=== PATIENT | male | born 1990 | race Caucasian/White ===

== ENCOUNTER 2018-12-01 13:53 | Inpatient (IN) | payer OTHER ==
[~2018-12-01 13:53] MED LIST: CEFAZOLIN 1 GM/50 ML (PMX) 50 ML IVPB; SEVOFLURANE 15 MIN
[2018-12-01] MEDS: LACTATED RINGER'S 1,000 ML IV ×2 (15:00→22:17)
[2018-12-01] MEDS ORDERED: ROPIVACAINE 0.2% 20 ML VIAL (15:49)
[2018-12-01] MEDS ORDERED: PROPOFOL 20 ML (15:49)
[2018-12-01] MEDS ORDERED: FENTAnyl 50 MCG/ML VIAL ×2 (15:49→19:43)
[2018-12-01] MEDS ORDERED: MIDAZOLAM 1 MG/ML 2 ML INJ (15:49)
[2018-12-01] MEDS ORDERED: ROCURONIUM 50 MG INJ ×4 (15:49→18:31)
[2018-12-01] MEDS ORDERED: ROPIVACAINE 0.5 % 30 ML VIAL (15:49)
[2018-12-01] MEDS ORDERED: ONDANSETRON 4 MG INJ (16:44)
[2018-12-01] MEDS ORDERED: CEFAZOLIN 1 GM INJ (16:44)
[2018-12-01] MEDS ORDERED: METOCLOPRAMIDE 10 MG INJ (16:44)
[2018-12-01] MEDS ORDERED: DEXAMETHASONE 4 MG/ML 5 ML INJ (16:44)
[2018-12-01] MEDS ORDERED: KETOROLAC 30 MG INJ (16:44)
[2018-12-01] MEDS ORDERED: OXYCODONE/ACETAMINOPHEN (5/325) TAB PO (18:00)
[2018-12-01] MEDS ORDERED: MEPERIDINE 25 MG INJ IV (18:00)
[2018-12-01] MEDS ORDERED: DIPHENHYDRAMINE 50 MG INJ IV (18:00)
[2018-12-01] MEDS ORDERED: METOCLOPRAMIDE 10 MG INJ IV (18:00)
[2018-12-01] MEDS ORDERED: FENTAnyl 50 MCG/ML VIAL IV ×2 (18:00)
[2018-12-01] MEDS ORDERED: HYDROmorphONE 1 MG/5 ML IV SYRINGE IV ×3 (18:00)
[2018-12-01] MEDS ORDERED: SUGAMMADEX SODIUM 200 MG/2 ML VIAL IV (19:44)
[2018-12-01] MEDS ORDERED: ZOLPIDEM 5 MG TAB PO (20:30)
[2018-12-01] MEDS ORDERED: ONDANSETRON 4 MG TAB PO (20:30)
[2018-12-01] MEDS: FENTAnyl 50 MCG/ML VIAL IV ×2 (21:00→22:17)
[2018-12-01] MEDS: ONDANSETRON 4 MG INJ IV (21:21)
[2018-12-01] MEDS: morphine 2 MG INJ IV (22:07)
[2018-12-01] MEDS: CYCLOBENZAPRINE 10 MG TAB PO (22:16)
[2018-12-01] MEDS: ASCORBIC ACID 500 MG TAB PO (22:16)
[2018-12-01] MEDS: CEFAZOLIN 1 GM/50 ML (PMX) 50 ML IVPB (22:17)
[2018-12-02] MEDS: HYDROCODONE/APAP (5/325) TAB PO ×2 (01:18→20:29)
[2018-12-02] MEDS: morphine 2 MG INJ IV ×10 (02:27→21:46)
[2018-12-02] MEDS: CEFAZOLIN 1 GM/50 ML (PMX) 50 ML IVPB ×3 (05:25→20:26)
[2018-12-02 06:44] LABS: ADD MAN DIFF? NO
[2018-12-02 06:53] LABS: BASOPHILS % 0.1 % (0.0-2.0); HEMATOCRIT 38.7 % (42.0-52.0); HEMOGLOBIN 13.7 g/dl (14.0-18.0); LYMPHOCYTES # 0.7 10^3/ul (0.8-2.9); LYMPHOCYTES % 4.8 % (15.0-51.0); MEAN CORPUSCULAR HGB CONC 35.4 g/dl (32.0-37.0); MEAN CORPUSCULAR VOLUME 93.3 fl (82.0-101.0); MEAN PLATELET VOLUME 12.1 fl (7.4-10.4); MONOCYTE # 0.6 10^3/ul (0.3-0.9); MONOCYTES % 4.4 % (0.0-11.0); NEUTROPHIL # 12.5 10^3/ul (1.6-7.5); NEUTROPHILS % 90.3 % (39.0-77.0); PLATELET COUNT 168 10^3/UL (140-415); RED BLOOD COUNT 4.15 10^6/ul (4.70-6.10)
[2018-12-02 06:53] LABS: WHITE BLOOD COUNT 13.9 10^3/ul (4.8-10.8)
[2018-12-02] MEDS: ASCORBIC ACID 500 MG TAB PO ×2 (09:10→20:26)
[2018-12-02] MEDS: ZINC SULFATE 220 MG CAP PO (09:10)
[2018-12-02 09:25] LABS: ALANINE AMINOTRANSFERASE 22 IU/L (13-69); ALBUMIN 3.9 g/dl (3.3-4.9); ALBUMIN/GLOBULIN RATIO 1.39; ALKALINE PHOSPHATASE 48 IU/L (42-121); ANION GAP 9 (5-13); ASPARTATE AMINO TRANSFERASE 32 IU/L (15-46); BILIRUBIN,INDIRECT 2.1 mg/dl (0-1.1); BILIRUBIN,TOTAL 2.1 mg/dl (0.2-1.3); BLOOD UREA NITROGEN 13 mg/dl (7-20); CALCIUM 9.2 mg/dl (8.4-10.2); CARBON DIOXIDE 26 mmol/L (21-31); CHLORIDE 103 mmol/L (97-110); CREATININE 1.09 mg/dl (0.61-1.24); Estimated GFR > 60 mL/min (>60); GLUCOSE 127 mg/dl (70-220); POTASSIUM 4.3 mmol/L (3.5-5.1); SODIUM 138 mmol/L (135-144); TOTAL PROTEIN 6.7 g/dl (6.1-8.1)
[2018-12-02] MEDS: LACTATED RINGER'S 1,000 ML IV ×3 (10:20→14:45)
[2018-12-03] MEDS: morphine 2 MG INJ IV ×3 (01:00→05:34)
[2018-12-03] MEDS: LACTATED RINGER'S 1,000 ML IV (01:01)
[2018-12-03] MEDS: CEFAZOLIN 1 GM/50 ML (PMX) 50 ML IVPB ×2 (05:34→14:16)
[2018-12-03] MEDS: morphine 4 MG/ML VIAL IV ×5 (07:47→21:38)
[2018-12-03] MEDS: ZINC SULFATE 220 MG CAP PO (09:36)
[2018-12-03] MEDS: ASCORBIC ACID 500 MG TAB PO ×2 (09:36→21:37)
[2018-12-03] MEDS ORDERED: MAGNESIUM HYDROXIDE 30ML CUP PO (21:00)
[2018-12-03] MEDS ORDERED: ACETAMINOPHEN 325 MG TAB PO (21:00)
[2018-12-03] MEDS: SENNA TAB PO (21:00)
[2018-12-03] MEDS ORDERED: SENNA TAB (21:20)
[2018-12-03] MEDS ORDERED: MAGNESIUM HYDROXIDE 30ML CUP (21:20)
[2018-12-04] MEDS: HYDROCODONE/APAP (5/325) TAB PO ×5 (00:23→16:40)
[2018-12-04 07:06] LABS: ADD MAN DIFF? NO
[2018-12-04 07:11] LABS: WHITE BLOOD COUNT 10.4 10^3/ul (4.8-10.8)
[2018-12-04 07:11] LABS: BASOPHILS % 0.4 % (0.0-2.0); EOSINOPHILS # 0.2 10^3/ul (0.0-0.5); EOSINOPHILS % 1.7 % (0.0-7.0); HEMATOCRIT 39.9 % (42.0-52.0); HEMOGLOBIN 14.1 g/dl (14.0-18.0); LYMPHOCYTES % 18.8 % (15.0-51.0); MEAN CORPUSCULAR HEMOGLOBIN 32.9 pg (29.0-33.0); MEAN CORPUSCULAR HGB CONC 35.3 g/dl (32.0-37.0); MEAN CORPUSCULAR VOLUME 93.2 fl (82.0-101.0); MEAN PLATELET VOLUME 11.6 fl (7.4-10.4); MONOCYTES % 9.7 % (0.0-11.0); NEUTROPHIL # 7.1 10^3/ul (1.6-7.5); NEUTROPHILS % 68.9 % (39.0-77.0); PLATELET COUNT 148 10^3/UL (140-415); RED BLOOD COUNT 4.28 10^6/ul (4.70-6.10); RED CELL DISTRIBUTION WIDTH 12.1 % (11.5-14.5)
[2018-12-04 07:38] LABS: ANION GAP 5 (5-13); BLOOD UREA NITROGEN 13 mg/dl (7-20); CALCIUM 9.4 mg/dl (8.4-10.2); CARBON DIOXIDE 35 mmol/L (21-31); CHLORIDE 98 mmol/L (97-110); CREATININE 1.02 mg/dl (0.61-1.24); Estimated GFR > 60 mL/min (>60); GLUCOSE 92 mg/dl (70-220); POTASSIUM 4.4 mmol/L (3.5-5.1); SODIUM 138 mmol/L (135-144)
[2018-12-04] MEDS: ZINC SULFATE 220 MG CAP PO (08:32)
[2018-12-04] MEDS: ASCORBIC ACID 500 MG TAB PO (08:32)
[2018-12-04] MEDS: SENNA TAB PO (08:33)
== END 2018-12-04 17:57 | DRG 494 ==
LOC: REC 13:53 → PP2 21:53
PROC: 0L8P0ZZ Division of Left Lower Leg Tendon, Open Approach (ICD-10-PCS; principal; 2018-12-01 15:30)
PROC: 0SNG0ZZ Release Left Ankle Joint, Open Approach (ICD-10-PCS; 2018-12-01 15:30)
PROC: 0SN Lower Joints, Release (ICD-10-PCS; 2018-12-01 15:30)
DX: Q66.0 Congenital talipes equinovarus (principal); Q68.8 Other specified congenital musculoskeletal deformities
CPT/HCPCS: 73610; 80048; 80053; 85025; 97110; 97116; 97161; 97530

== ENCOUNTER 2018-12-04 18:06 | Inpatient (IN) | payer OTHER ==
[2018-12-04] MEDS ORDERED: ACETAMINOPHEN 325 MG TAB PO (18:30)
[2018-12-04] MEDS ORDERED: PENDING SANTYL ORDER FOR WOUND CARE XX (18:30)
[2018-12-04] MEDS ORDERED: MAGNESIUM HYDROXIDE 30ML CUP PO (18:30)
[2018-12-04] MEDS ORDERED: ZOLPIDEM 5 MG TAB PO (18:30)
[2018-12-04] MEDS ORDERED: BISACODYL 10 MG SUPP PR (18:30)
[2018-12-04] MEDS ORDERED: HYDROCODONE/APAP (5/325) TAB PO (18:30)
[2018-12-04] MEDS: DOCUSATE SODIUM 100 MG CAP PO (20:08)
[2018-12-04] MEDS: ASCORBIC ACID 500 MG TAB PO (20:08)
[2018-12-04] MEDS: HYDROCODONE/APAP (5/325) TAB PO (20:08)
[2018-12-04] MEDS: SENNA TAB PO (20:09)
[2018-12-04] MEDS ORDERED: SENNA TAB PO (21:00)
[2018-12-05] MEDS: HYDROCODONE/APAP (5/325) TAB PO ×2 (00:07→05:08)
[2018-12-05 06:15] LABS: ADD UMIC NO; UR ASCORBIC ACID 40 mg/dL (NEGATIVE); UR BILIRUBIN (Dip) NEGATIVE (NEGATIVE); UR BLOOD (Dip) NEGATIVE (NEGATIVE); UR CLARITY CLEAR (CLEAR); UR COLOR YELLOW (YELLOW); UR GLUCOSE (Dip) NEGATIVE (NEGATIVE); UR KETONES (Dip) NEGATIVE (NEGATIVE); UR LEUKOCYTE ESTERASE (Dip) NEGATIVE Leu/ul (NEGATIVE); UR NITRITE (Dip) NEGATIVE (NEGATIVE); UR SPECIFIC GRAVITY (Dip) 1.014 (1.003-1.030); UR TOTAL PROTEIN (Dip) NEGATIVE (NEGATIVE); UR UROBILINOGEN (Dip) NEGATIVE (NEGATIVE)
[2018-12-05 07:17] LABS: ADD MAN DIFF? NO
[2018-12-05 07:20] LABS: BASOPHILS % 0.3 % (0.0-2.0); EOSINOPHILS # 0.3 10^3/ul (0.0-0.5); EOSINOPHILS % 2.8 % (0.0-7.0); HEMATOCRIT 44.5 % (42.0-52.0); HEMOGLOBIN 15.8 g/dl (14.0-18.0); LYMPHOCYTES # 1.2 10^3/ul (0.8-2.9); LYMPHOCYTES % 13.2 % (15.0-51.0); MEAN CORPUSCULAR HGB CONC 35.5 g/dl (32.0-37.0); MEAN CORPUSCULAR VOLUME 90.1 fl (82.0-101.0); MEAN PLATELET VOLUME 11.6 fl (7.4-10.4); MONOCYTE # 0.7 10^3/ul (0.3-0.9); MONOCYTES % 7.4 % (0.0-11.0); NEUTROPHILS % 75.6 % (39.0-77.0); PLATELET COUNT 177 10^3/UL (140-415); RED BLOOD COUNT 4.94 10^6/ul (4.70-6.10); RED CELL DISTRIBUTION WIDTH 11.9 % (11.5-14.5)
[2018-12-05 07:20] LABS: WHITE BLOOD COUNT 9.2 10^3/ul (4.8-10.8)
[2018-12-05 07:44] LABS: ALANINE AMINOTRANSFERASE 21 IU/L (13-69); ALBUMIN 3.9 g/dl (3.3-4.9); ALBUMIN/GLOBULIN RATIO 1.08; ALKALINE PHOSPHATASE 58 IU/L (42-121); ANION GAP 8 (5-13); ASPARTATE AMINO TRANSFERASE 26 IU/L (15-46); BILIRUBIN,INDIRECT 1.7 mg/dl (0-1.1); BILIRUBIN,TOTAL 1.7 mg/dl (0.2-1.3); BLOOD UREA NITROGEN 20 mg/dl (7-20); CALCIUM 9.5 mg/dl (8.4-10.2); CARBON DIOXIDE 33 mmol/L (21-31); CHLORIDE 98 mmol/L (97-110); CREATININE 1.02 mg/dl (0.61-1.24); Estimated GFR > 60 mL/min (>60); GLUCOSE 101 mg/dl (70-220); POTASSIUM 4.5 mmol/L (3.5-5.1); SODIUM 139 mmol/L (135-144); TOTAL PROTEIN 7.5 g/dl (6.1-8.1)
[2018-12-05] MEDS ORDERED: HYDROCODONE/APAP (10/325) TAB PO (08:30)
[2018-12-05] MEDS: DOCUSATE SODIUM 100 MG CAP PO ×2 (09:37→20:47)
[2018-12-05] MEDS: ZINC SULFATE 220 MG CAP PO (09:37)
[2018-12-05] MEDS: SENNA TAB PO ×2 (09:37→20:47)
[2018-12-05] MEDS: ASCORBIC ACID 500 MG TAB PO ×2 (09:37→20:47)
[2018-12-05] MEDS: HYDROCODONE/APAP (10/325) TAB PO ×3 (09:41→20:47)
[2018-12-05] MEDS: ENOXAPARIN 40 MG/0.4 ML SYG SC (13:57)
[2018-12-06] MEDS: HYDROCODONE/APAP (10/325) TAB PO ×4 (01:23→20:39)
[2018-12-06] MEDS: ASCORBIC ACID 500 MG TAB PO ×2 (08:18→20:39)
[2018-12-06] MEDS: DOCUSATE SODIUM 100 MG CAP PO ×2 (08:18→20:39)
[2018-12-06] MEDS: ZINC SULFATE 220 MG CAP PO (08:18)
[2018-12-06] MEDS: ENOXAPARIN 40 MG/0.4 ML SYG SC (08:19)
[2018-12-06] MEDS: SENNA TAB PO ×2 (08:21→20:39)
[2018-12-06] MEDS: LACTULOSE 30ML CUP PO (17:55)
[2018-12-07] MEDS: ASCORBIC ACID 500 MG TAB PO ×2 (08:49→20:26)
[2018-12-07] MEDS: DOCUSATE SODIUM 100 MG CAP PO ×2 (08:49→20:26)
[2018-12-07] MEDS: SENNA TAB PO ×2 (08:49→20:27)
[2018-12-07] MEDS: ZINC SULFATE 220 MG CAP PO (08:49)
[2018-12-07] MEDS: ENOXAPARIN 40 MG/0.4 ML SYG SC (08:56)
[2018-12-07] MEDS: HYDROCODONE/APAP (10/325) TAB PO (20:27)
[2018-12-08] MEDS: HYDROCODONE/APAP (10/325) TAB PO ×4 (02:38→20:07)
[2018-12-08] MEDS: ENOXAPARIN 40 MG/0.4 ML SYG SC (09:00)
[2018-12-08] MEDS: ASCORBIC ACID 500 MG TAB PO ×2 (09:27→20:07)
[2018-12-08] MEDS: DOCUSATE SODIUM 100 MG CAP PO ×2 (09:27→20:07)
[2018-12-08] MEDS: ZINC SULFATE 220 MG CAP PO (09:27)
[2018-12-08] MEDS: SENNA TAB PO ×2 (09:27→20:07)
[2018-12-09] MEDS: HYDROCODONE/APAP (10/325) TAB PO ×2 (00:08→08:38)
[2018-12-09] MEDS: DOCUSATE SODIUM 100 MG CAP PO (08:37)
[2018-12-09] MEDS: SENNA TAB PO (08:37)
[2018-12-09] MEDS: ZINC SULFATE 220 MG CAP PO (08:38)
[2018-12-09] MEDS: ASCORBIC ACID 500 MG TAB PO (08:38)
[2018-12-09] MEDS: ENOXAPARIN 40 MG/0.4 ML SYG SC (08:39)
== END 2018-12-09 16:58 | disposition home health service (06) | DRG 561 ==
LOC: VRC 18:06
PROC: F07Z5ZZ Bed Mobility Treatment (ICD-10-PCS; principal; 2018-12-05)
PROC: F07Z8ZZ Transfer Training Treatment (ICD-10-PCS; 2018-12-05)
PROC: F07Z9ZZ Gait Training/Functional Ambulation Treatment (ICD-10-PCS; 2018-12-05)
PROC: F08Z2ZZ Grooming/Personal Hygiene Treatment (ICD-10-PCS; 2018-12-05)
PROC: F08Z1ZZ Dressing Techniques Treatment (ICD-10-PCS; 2018-12-05)
PROC: F08Z0ZZ Bathing/Showering Techniques Treatment (ICD-10-PCS; 2018-12-05)
DX: Z47.89 Encounter for other orthopedic aftercare (principal); G89.18 Other acute postprocedural pain; R60.0 Localized edema; Z74.09 Other reduced mobility
CPT/HCPCS: 80053; 81003; 85025; 87081; 87086; 97110; 97116; 97162; 97165; 97530; 97535; 97542